=== PATIENT | male | born 1995 | race Caucasian/White ===

== ENCOUNTER → 2017-03-15 | Outpatient (CLI) | payer BC ==
[~2017-03-15] MED LIST: METHACHOLINE KIT (J7674) INH ONE
--- NOTE | 2017-03-15 11:37 | PFTRPT ---
Tech: Raffi BALLAST INSPECTOR Age: 21 Sex: Male Race: Height: 71.75 Inches Weight: 231.00 Lbs BSA: 2.26 Diagnosis: R06.02 PULMONARY FUNCTION REPORT ORDERING PROVIDER: DARRICK Lane DATE OF SERVICE: 03/15/17 SPIROMETRY: Excellent technical quality. The forced vital capacity is normal. The FEV1 is in proportion. The obstructive index is, therefore, normal. FLOW VOLUME LOOP: The expiratory limb of the flow volume loop is normal. LUNG VOLUMES: The total lung capacity is normal. The residual volume raises a question of air trapping. DIFFUSION CAPACITY: The diffusion capacity is normal. HEMOGLOBIN: The hemoglobin is acceptable at 15.4. AIRWAY MECHANICS: Airways resistance is minimally elevated with a concomitant decrease in airway conductance. IMPRESSION: Borderline study in view of the above. Please correlate clinically MTDD
--- NOTE | 2017-03-15 12:10 | PFTRPT ---
Tech: Maria Fernanda SNELL RRT Age: 21 Sex: Male Race: Height: 71.75 Inches Weight: 231.00 Lbs BSA: 2.26 Diagnosis: R06.02 METHACHOLINE CHALLENGE REPORT: ORDERING PROVIDER: DARRICK Lane DATE OF SERVICE: 03/15/17 INTERPRETATION: The study was of excellent technical quality. Under protocol, methacholine was administered. At a dose of 2.5 mg (13.875 CDUs), a 25% decline in the FEV1 was noted. The PC20 of 1.25 is significant. Flow rates returned to baseline post bronchodilator administration. IMPRESSION: Positive methacholine challenge study. MTDD
== END ==
LOC: M CARPUL 11:00
PROVIDERS: ATTEND Nurse Practitioner Adult Health
DX: R06.2 Wheezing (principal)
CPT/HCPCS: 88738; 94010; 94070; 94726; 94729; J7674

== ENCOUNTER 2022-12-15 09:06 | Inpatient (IN) | payer BC ==
[~2022-12-15] VITALS: Ht 182.9 cm; Wt 105.3 kg
[2022-12-15] MEDS ORDERED: LEXA1TAB PO (09:20)
[2022-12-15] MEDS ORDERED: BUPR300T92 PO (09:20)
[2022-12-15] MEDS ORDERED: HOME MED LIST COMPLETE! XX SCH (14:10)
[2022-12-15 14:44] LABS: HEMATOCRIT 45.9 % (42.0-52.0); HEMOGLOBIN 16.6 g/dl (13.5-17.5); MEAN CORPUSCULAR HEMOGLOBIN 33.3 pg (27.0-33.0); MEAN CORPUSCULAR HGB CONC 36.2 g/dl (32.0-36.5); PLATELET COUNT, AUTOMATED 241 10^3/uL (150-450); RED BLOOD COUNT 4.99 10^6/uL (4.30-6.10)
[2022-12-15 15:08] LABS: ETHYL ALCOHOL (ETHANOL) < 0.003 % (0.000-0.010)
[2022-12-15 15:09] LABS: ACETAMINOPHEN LEVEL < 2.0 UG/ML (10.0-20.0); ALBUMIN 4.9 G/DL (3.2-5.2); ALKALINE PHOSPHATASE 112 U/L (46-116); ALT/SGPT 42 U/L (7.0-40); AST/SGOT 23 U/L (<34); BILIRUBIN,DIRECT 0.2 MG/DL (<0.4); BILIRUBIN,TOTAL 0.7 MG/DL (0.3-1.2); BLOOD UREA NITROGEN 9 MG/DL (9-23); CALCIUM LEVEL 9.9 MG/DL (8.5-10.1); CARBON DIOXIDE LEVEL 28 MMOL/L (20-31); CHLORIDE LEVEL 102 MMOL/L (98-107); CREATININE FOR GFR 0.94 MG/DL (0.70-1.30); GLOMERULAR FILTRATION RATE > 60.0 (>60); GLUCOSE, FASTING 78 MG/DL (60-100); POTASSIUM SERUM 3.7 MMOL/L (3.5-5.1); SALICYLATE LEVEL < 3.0 MG/DL (<30); SODIUM LEVEL 138 MMOL/L (136-145)
[2022-12-15 15:11] LABS: THYROID STIMULATING HORMONE 4.483 uIU/ML (0.55-4.78)
[2022-12-15 15:18] LABS: AMPHETAMINES LEVEL URINE NEGATIVE (NEGATIVE); BARBITURATES URINE NEGATIVE (NEGATIVE); BENZODIAZEPINES URINE NEGATIVE (NEGATIVE); CANNABINOIDS URINE NEGATIVE (NEGATIVE); COCAINE METABOLITE URINE NEGATIVE (NEGATIVE); METHADONE URINE NEGATIVE (NEGATIVE); OPIATES URINE NEGATIVE (NEGATIVE); PHENCYCLIDINE URINE NEGATIVE (NEGATIVE)
[2022-12-15] MEDS ORDERED: diphenhydrAMINE 25MG CAP PO PRN (15:30)
[2022-12-15] MEDS ORDERED: ACETAMINOPHEN TAB 650MG DOSE (2X325MG) PO PRN (15:30)
[2022-12-15] MEDS ORDERED: MOM 30ML SUSPENSION UDC PO PRN (15:30)
[2022-12-15] MEDS ORDERED: MAALOX 30 ML SUSP *UDC PO PRN (15:30)
[2022-12-15] MEDS ORDERED: traZODone 50 MG TAB PO PRN (15:30)
[2022-12-15] MEDS ORDERED: OLANZapine ORAL DISINTEGRATING TAB 5MG PO PRN (15:30)
[2022-12-15] MEDS: NICOTINE 14 MG/24 HR TRANSDERMAL TD SCH (15:51)
[2022-12-16 06:43] VITALS: BP 169/80
[2022-12-16] MEDS ORDERED: ESCITALOPRAM OXALATE 10 MG TAB (LEXAPRO) PO SCH (09:00)
[2022-12-16] MEDS: NICOTINE 14 MG/24 HR TRANSDERMAL TD SCH (09:00)
[2022-12-16] MEDS: buPROPion **XL** TABLET 150MG (WELLBUTRIN XL) PO SCH (09:03)
[2022-12-16] MEDS ORDERED: ESCITALOPRAM OXALATE 10 MG TAB (LEXAPRO) PO ONE (09:50)
[2022-12-16] MEDS: amLODIPine 5 MG TAB PO SCH (10:55)
[2022-12-16] MEDS: busPIRone 5 MG TAB PO SCH ×2 (10:55→21:19)
[2022-12-16] MEDS: IBUPROFEN 400MG TAB PO PRN (11:30)
[2022-12-16 17:31] VITALS: BP 140/90
[2022-12-17 06:41] VITALS: BP 140/89
[2022-12-17 08:03] VITALS: BP 146/90
[2022-12-17] MEDS: PILL CUTTER 1 EACH XX PRN ×2 (08:03→20:44)
[2022-12-17] MEDS: ESCITALOPRAM OXALATE 10 MG TAB (LEXAPRO) PO SCH (08:04)
[2022-12-17] MEDS: busPIRone 5 MG TAB PO SCH ×2 (08:04→20:44)
[2022-12-17] MEDS: amLODIPine 5 MG TAB PO SCH (08:05)
[2022-12-17] MEDS: buPROPion **XL** TABLET 150MG (WELLBUTRIN XL) PO SCH (08:05)
[2022-12-17] MEDS: NICOTINE 14 MG/24 HR TRANSDERMAL TD SCH (08:07)
[2022-12-17 08:35] LABS: ALBUMIN 4.1 G/DL (3.2-5.2); BILIRUBIN,DIRECT 0.2 MG/DL (<0.4); BILIRUBIN,TOTAL 0.7 MG/DL (0.3-1.2); TOTAL PROTEIN 7.3 G/DL (5.7-8.2)
[2022-12-17 17:59] VITALS: BP 122/75
[2022-12-18 06:23] VITALS: BP 121/63
[2022-12-18] MEDS: NICOTINE 14 MG/24 HR TRANSDERMAL TD SCH (08:29)
[2022-12-18] MEDS: ESCITALOPRAM OXALATE 10 MG TAB (LEXAPRO) PO SCH (08:36)
[2022-12-18] MEDS: buPROPion **XL** TABLET 150MG (WELLBUTRIN XL) PO SCH (08:36)
[2022-12-18] MEDS: busPIRone 5 MG TAB PO SCH ×2 (08:37→20:20)
[2022-12-18] MEDS: amLODIPine 5 MG TAB PO SCH (08:37)
[2022-12-18 18:00] VITALS: BP 131/78
[2022-12-18] MEDS: PILL CUTTER 1 EACH XX PRN (20:20)
[2022-12-18] MEDS ORDERED: traZODone 25MG PER 1/2 TABLET PO PRN (21:30)
[2022-12-19 06:11] VITALS: BP 127/65
[2022-12-19] MEDS: IBUPROFEN 400MG TAB PO PRN (06:51)
[2022-12-19] MEDS: buPROPion **XL** TABLET 150MG (WELLBUTRIN XL) PO SCH (08:28)
[2022-12-19] MEDS: ESCITALOPRAM OXALATE 10 MG TAB (LEXAPRO) PO SCH (08:28)
[2022-12-19] MEDS: busPIRone 5 MG TAB PO SCH ×2 (08:28→20:14)
[2022-12-19] MEDS: amLODIPine 5 MG TAB PO SCH (08:28)
[2022-12-19] MEDS: NICOTINE 14 MG/24 HR TRANSDERMAL TD SCH (08:29)
[2022-12-19 17:54] VITALS: BP 126/71
[2022-12-19] MEDS: traZODone 50 MG TAB PO PRN (22:09)
[2022-12-20 07:06] VITALS: BP 138/70
[2022-12-20 08:26] VITALS: BP 137/77
[2022-12-20] MEDS: amLODIPine 5 MG TAB PO SCH (08:30)
[2022-12-20] MEDS: buPROPion **XL** TABLET 150MG (WELLBUTRIN XL) PO SCH (08:30)
[2022-12-20] MEDS: ESCITALOPRAM OXALATE 10 MG TAB (LEXAPRO) PO SCH (08:30)
[2022-12-20] MEDS: busPIRone 5 MG TAB PO SCH (08:31)
[2022-12-20] MEDS: NICOTINE 14 MG/24 HR TRANSDERMAL TD SCH (08:32)
[2022-12-20 16:26] VITALS: BP 121/69
[2022-12-20] MEDS: busPIRone 10 MG TAB PO SCH (21:03)
[2022-12-20] MEDS: traZODone 50 MG TAB PO PRN (21:05)
[2022-12-21 07:03] VITALS: BP 120/59
[2022-12-21] MEDS: buPROPion **XL** TABLET 150MG (WELLBUTRIN XL) PO SCH (08:21)
[2022-12-21] MEDS: busPIRone 10 MG TAB PO SCH ×2 (08:21→20:33)
[2022-12-21] MEDS: ESCITALOPRAM OXALATE 10 MG TAB (LEXAPRO) PO SCH (08:21)
[2022-12-21] MEDS: amLODIPine 5 MG TAB PO SCH (08:21)
[2022-12-21 16:43] VITALS: BP 123/71
[2022-12-21] MEDS: traZODone 50 MG TAB PO PRN (21:41)
[2022-12-22 06:25] VITALS: BP 138/64
[2022-12-22] MEDS ORDERED: TRAZ-252 PO (08:20)
[2022-12-22] MEDS ORDERED: AMLO1TAB24 PO (08:20)
[2022-12-22] MEDS ORDERED: LEXA1TAB PO (08:20)
[2022-12-22] MEDS ORDERED: BUSP10TA PO (08:20)
[2022-12-22 08:28] VITALS: BP 140/83
[2022-12-22] MEDS: busPIRone 10 MG TAB PO SCH (08:28)
[2022-12-22] MEDS: ESCITALOPRAM OXALATE 10 MG TAB (LEXAPRO) PO SCH (08:28)
[2022-12-22] MEDS: amLODIPine 5 MG TAB PO SCH (08:28)
[2022-12-22] MEDS: buPROPion **XL** TABLET 150MG (WELLBUTRIN XL) PO SCH (08:28)
== END 2022-12-22 12:04 | disposition home or self-care (01) | DRG 754 ==
LOC: M ED 09:06 → M ED INP 15:29 → M PSY 20:41
PROVIDERS: ADMIT Student in an Organized Health Care Education/Training Program; ATTEND Student in an Organized Health Care Education/Training Program
DX: F32.A Depression, unspecified (principal); F41.9 Anxiety disorder, unspecified; F60.89 Other specific personality disorders; R45.850 Homicidal ideations; R45.851 Suicidal ideations; I10 Essential (primary) hypertension; Z79.899 Other long term (current) drug therapy; Z90.49 Acquired absence of other specified parts of digestive tract; F43.9 Reaction to severe stress, unspecified